=== PATIENT | male | born 1995 | race Caucasian/White ===

== ENCOUNTER 2019-02-15 03:23 | Emergency (ER) | payer OTHER ==
[~2019-02-15] VITALS: Ht 170.2 cm; Wt 81.7 kg
[2019-02-15] MEDS ORDERED: KEFLEX500 M1 PO (06:17)
[2019-02-15 06:32] VITALS: BP 112/70
== END 2019-02-15 06:32 | disposition home or self-care (01) ==
LOC: ER 03:23
DX: S01.01XA Laceration without foreign body of scalp, initial encounter (principal); W22.8XXA Striking against or struck by other objects, initial encounter; Y93.72 Activity, wrestling; Y92.89 Other specified places as the place of occurrence of the external cause; Y99.8 Other external cause status

== ENCOUNTER 2019-02-24 12:35 | Emergency (ER) | payer OTHER ==
[~2019-02-24] VITALS: Ht 170.2 cm; Wt 80.3 kg
[2019-02-24 12:35] VITALS: BP 124/92
[~2019-02-24 12:35] MED LIST: KEFLEX500 M1 PO
== END 2019-02-24 13:11 | disposition home or self-care (01) ==
LOC: ER 12:35
DX: S01.81XD Laceration without foreign body of other part of head, subsequent encounter (principal); X58.XXXD Exposure to other specified factors, subsequent encounter